=== PATIENT | female | born 1950 | race Caucasian/White ===

== ENCOUNTER → 2020-01-02 12:09 | Outpatient (BNVA) | payer MEDICARE, SELFPAY | PROVIDERS: Visit Provider Nurse Practitioner Family | DX: R73.09 Other abnormal glucose (principal); E78.2 Mixed hyperlipidemia; D64.9 Anemia, unspecified; R53.83 Other fatigue; R10.9 Unspecified abdominal pain; E55.9 Vitamin D deficiency, unspecified; R19.00 Intra-abdominal and pelvic swelling, mass and lump, unspecified site | CPT/HCPCS: 74018; 80053; 80061; 81001; 82306; 83036; 83540; 84443; 85025; 87077; 87086; 87186 ==

== ENCOUNTER 2020-01-14 12:47 | Outpatient (CLI) | payer MEDICARE, SELFPAY ==
[2020-01-14] MEDS: iohexol 300 mg/mL 100 mL Btl IV (14:15)
[2020-01-14] MEDS: iohexol 300 mg/mL 50 mL Btl PO (14:35)
--- NOTE | 2020-01-14 15:00 | CT_ITS ---
WS: [id number] CT ABDOMEN AND PELVIS WITH CONTRAST HISTORY: abdominal pain TECHNIQUE: Imaging performed of the abdomen and pelvis with IV contrast. Single phase imaging of the abdomen. Coronal and sagittal reformats are submitted. All CT scans at [facility] use at least one of these dose optimization techniques: automated exposure control; mA and/or kV adjustment per patient size (includes targeted exams where dose is matched to clinical indication); or iterativ e reconstruction. IV CONTRAST: Omnipaque 300; 95 mL IV. Oral contrast: Yes. DLP: 1027.79 mGycm COMPARISON: 11/17/2010 Lower thorax: Long-term stability of bilateral lower lobe noncalcified pulmonary nodules measuring 4 to 5 mm. Heart size is normal. No effusions. Small hiatal hernia. Liver/biliary system: Liver is mildly enlarged. There is a Delaney's lobe that extends to the iliac cr est. No bile duct dilatation or mass. Gallbladder: Normal. No gallstones or wall thickening. No pericholecystic fluid. Pancreas: Normal. Spleen: Normal. Adrenal glands: Normal. Right kidney: Normal size kidney with several small cortical cysts. Some of these hypodensities are t oo small to characterize. Cysts have increased in size and number since the prior study. No obstructi on. Left kidney: Cortical cysts. 7 mm low-attenuation nodule from the posterior mid kidney was not presen t on the prior study and too small to completely characterize but is not a simple cyst. There is an a dditional 8 mm hypodense nodule from the superior pole which is slightly increased in size. No obstru ction. Aorta: Moderate atherosclerosis of aorta. Mild ectasia. Lymphadenopathy: None. Free fluid: None. GI tract: There is extensive fecal retention throughout nearly the entire colon. Appendix is normal. No obstruction. Abdominal wall: Unremarkable abdominal wall. No hernia. Pelvis: Uterus is atrophic as expected. No free fluid or adenopathy. Urinary bladder is well distende d. Bones: No osteoblastic or osteolytic bone disease. Mild degenerative changes at the hip joints bilate rally, RIGHT greater than LEFT. CT/CT abdomen pelvis w con* [id number] IMPRESSION: 1. No acute abdominal or pelvic abnormalities. 2. Diffuse moderate constipation. 3. Extensive atherosclerosis aorta with mild ectasia. 4. Low-attenuation nodule in the LEFT kidney, interpolar. Not a simple cyst. D ue to its small size this would not be visible by ultrasound. Recommend follow- up renal mass CT protocol in 6 months. 5. Long-term stability bilateral lower lobe subcentimeter pulmonary nodules.
== END 2020-01-14 12:48 | disposition home or self-care (01) ==
LOC: RADWPI 12:52
PROVIDERS: PCP Nurse Practitioner Family; Visit Provider Nurse Practitioner Family
DX: R10.9 Unspecified abdominal pain (principal); K59.00 Constipation, unspecified; I70.0 Atherosclerosis of aorta; I77.819 Aortic ectasia, unspecified site; N28.89 Other specified disorders of kidney and ureter; R91.8 Other nonspecific abnormal finding of lung field
CPT/HCPCS: 74177; Q9967

== ENCOUNTER → 2022-07-27 15:16 | Outpatient (BNVA) | payer MEDICARE, SELFPAY | PROVIDERS: PCP Nurse Practitioner; Visit Provider Nurse Practitioner | DX: R55 Syncope and collapse (principal); R53.83 Other fatigue | CPT/HCPCS: 80053; 84443; 85025 ==

== ENCOUNTER → 2022-07-28 13:57 | Outpatient (BNVA) | payer MEDICARE, SELFPAY | PROVIDERS: PCP Nurse Practitioner; Visit Provider Nurse Practitioner | DX: R55 Syncope and collapse (principal) | CPT/HCPCS: 81000 ==

== ENCOUNTER 2022-10-04 13:50 | Outpatient (CLI) | payer MEDICARE, SELFPAY ==
--- NOTE | 2022-10-04 14:45 | US_ITS ---
WS: [id number] Complete ABDOMINAL ULTRASOUND HISTORY: R10.9 - Unspecified abdominal pain COMPARISON: Prior CT 01/14/2020 Liver: 15.6 cm in length. Normal size liver and echogenicity. No bile duct dilatation or mass. Portal Vein: Normal hepatopetal flow with monophasic waveform. Gallbladder: Normally distended gallbladder with no stones or wall thickening. CBD: 1.0 cm Pancreas: Normal size and echogenicity. Right kidney: 8.8 cm x 4.9 x 3.9 cm. Cortex:1.0 cm. Kidney is low normal size with mild cortical thinning. Simple cyst lower pole measures 1.4 x 1.5 x 1. 8 cm. No solid mass. Left kidney: 8.4 cm x 4.2 cm x 3.5 cm. Cortex: 1.0 cm. Low normal size kidney with no hydronephrosis. Spleen: Normal, 9.4 cm in length. Aorta and IVC: Mild atherosclerosis aorta. US/US abdomen complete* [id number] Impression: 1. Normal gallbladder. 2. No hydronephrosis. 3. Low normal size kidneys with no hydronephrosis. 4. Simple cyst RIGHT kidney.
== END 2022-10-04 13:51 | disposition home or self-care (01) ==
PROVIDERS: PCP Nurse Practitioner; Visit Provider Nurse Practitioner
DX: R10.9 Unspecified abdominal pain (principal); N28.1 Cyst of kidney, acquired
CPT/HCPCS: 76700

== ENCOUNTER → 2022-11-29 09:26 | Outpatient (BNVA) | payer MEDICARE, SELFPAY | PROVIDERS: PCP Nurse Practitioner; Visit Provider Nurse Practitioner | DX: M17.11 Unilateral primary osteoarthritis, right knee (principal) | CPT/HCPCS: 73562 ==

== ENCOUNTER 2022-12-17 13:58 | Outpatient (CLI) | payer MEDICARE, SELFPAY ==
--- NOTE | 2022-12-17 14:30 | XR_ITS ---
WS: [id number] SCREENING DEXA SCAN Attention Point CLINICAL INFORMATION: osteopenia COMPARISON: None. FINDINGS: The L1-L4 bone mineral density measures 1.044 g/cm2. This corresponds to a T score score of -1.1 and Z score of 0.4. Left femoral neck bone mineral density measures 0.723 g/cm2. This corresponds to a T score of -2.3 an d Z score of -0.8. Right femoral neck bone mineral density measures 0.664 g/cm2. This corresponds to a T score -2.7of an d Z score of -1.2. Mean femoral neck bone mineral density measures 0.694 g/cm2. This corresponds to a T score of -2.5 an d Z score of -1.0. XR/XR DEXA axial skeleton* [id number] IMPRESSION: Osteopenia lumbar spine. Osteoporosis femoral necks. Patient's FRAX calculated 10 year probability for major osteoporotic fracture i s 15.1 % and osteoporotic hip fracture is 5.8%.
== END 2022-12-17 13:59 | disposition home or self-care (01) ==
PROVIDERS: PCP Nurse Practitioner; Visit Provider Nurse Practitioner
DX: M85.88 Other specified disorders of bone density and structure, other site (principal); M81.0 Age-related osteoporosis without current pathological fracture
CPT/HCPCS: 77080

== ENCOUNTER 2023-03-25 22:15 | Emergency (ER) | payer MEDICARE, SELFPAY ==
[2023-03-25 22:17] VITALS: BP 150/95; PULSE 100; RESP 20; TEMP 36.7; O2SAT 94; BMI 25.0
--- NOTE | 2023-03-25 22:18 | ECG_ITS ---
[facility] Test Date: 2023-03-25 Pat Name: April Pantoja Department: Room: Gender: Female Emergency Physician: : 1950 Requested By: Bony Cheng Order Number: [id number] David MD: Greg Contreras M.D. Measurements Intervals [place] Rate: 100 P: 73 CO: 175 QRS: -38 QRSD: 81 T: 65 QT: 342 QTc: 441 Interpretive Statements SINUS TACHYCARDIA POSSIBLE LEFT ATRIAL ENLARGEMENT [-0.1mV P-WAVE IN V1/V2] LEFT AXIS DEVIATION [QRS AXIS < -30] POSSIBLE RIGHT VENTRICULAR CONDUCTION DELAY [RSR (QR) IN V1/V2] ANTEROSEPTAL MYOCARDIAL INFARCTION , OF INDETERMINATE AGE [40+ ms Q WAVE IN V1-V4] No previous ECG available for comparison Electronically Signed On 03-25-2023 23:07:38 CDT by Greg Contreras M.D. [id number] f
--- NOTE | 2023-03-25 22:31 | XRR_ITS ---
PROCEDURE INFORMATION: Exam: XR Chest Exam date and time: 03/25/2023 10:39 PM Age: 72 years old Clinical indication: Patient HX: Arythmia/palpitations; Numbness in legs and feet TECHNIQUE: Imaging protocol: Radiologic exam of the chest. Views: 1 view. COMPARISON: CT abdomen pelvis w con* [id number] 01/14/2020 2:14 PM FINDINGS: Lungs: Unremarkable. No consolidation. Pleural spaces: Unremarkable. No pleural effusion. No pneumothorax. Heart/Mediastinum: Unremarkable. No cardiomegaly. Bones/joints: Unremarkable. XR/XR chest 1V portable [id number] IMPRESSION: No acute findings.
[2023-03-25] MEDS: metoprolol tartrate 1 mg/1 mL SDV 5 mL 2.5 MG IVP (22:37)
[2023-03-25 22:38] LABS: Basophils # 0.1 10^3/uL (0.0-0.1); Basophils % 0.8 %; Eosinophils # 0.2 10^3/uL (0.0-0.8); Eosinophils % 2.9 %; Hematocrit 45.9 % (36-47); Lymphocytes # 1.6 10^3/uL (0.8-4.8); Lymphocytes % 19.5 %; Mean Corpuscular HGB Conc 32.9 g/dL (30-55); Mean Corpuscular Hemoglobin 31.8 pg (27-33); Mean Corpuscular Volume 96.6 fl (85-98); Mean Platelet Volume 11.4 fL (7.4-10.4); Monocytes # 0.9 10^3/uL (0.2-0.9); Monocytes % 11.3 %; Neutrophils # 5.37 10^3/uL (1.8-7.7); Nucleated Red Blood Cells % 0 %; Platelet Count 244 10^3/cmm (157-399); Red Blood Count 4.75 10^6/uL (3.85-5.65); Red Cell Distribution Width 13.1 % (12.1-15.1); White Blood Count 8.26 10^3/uL (3.29-11.43)
[2023-03-25 22:55] LABS: Troponin(5th) Baseline 78 ng/L (0-10)
[2023-03-25 23:01] LABS: D Dimer 0.96 ug/mLFEU (0-0.59)
[2023-03-25 23:05] LABS: Alanine Aminotransferase 6 U/L (0-33); Alkaline Phosphatase 120 U/L (35-105); Anion Gap 15.2 (5-19); Aspartate Amino Transferase 13 U/L (0-32); Blood Urea Nitrogen 12 mg/dL (8-23); Calcium 9.2 mg/dL (8.5-10.5); Carbon Dioxide 28 mmol/L (22-29); Chloride 101 mmol/L (98-107); Globulin 2.4 g/dL (1.3-4.6); Glucose 111 mg/dL (65-115); NT Pro B Type Natriuretic Pept 431 pg/mL (0-125); Osmolality Calculated 290 mOsm/kg (285-295); Potassium 4.2 mmol/L (3.5-5.1); Sodium 140 mmol/L (136-145); Thyroid Stimulating Hormone 1.74 uIU/mL (0.27-4.20); Total Bilirubin 0.2 mg/dL (0.15-1.2); Total Protein 6.4 g/dL (6.6-8.7)
--- NOTE | 2023-03-25 23:21 | CTR_ITS ---
PROCEDURE INFORMATION: Exam: CTA Chest With Contrast Exam date and time: 03/25/2023 11:55 PM Age: 72 years old Clinical indication: Abnormal findings; Abnormal diagnostic tests; Elevated d-dimer; Other: Tachycardia/hypotension; Prior surgery; Surgery date: 6+ months; Surgery type: Lumpectomy; Patient HX: Tachycardia and hypotension with dimer of 0.93. History of breast cancer. ; Additional info: Palpitations TECHNIQUE: Imaging protocol: Computed tomographic angiography of the chest with contrast. Exam focused on the arteries. 3D rendering (Not supervised by radiologist): MIP and/or 3D reconstructed images were created by the technologist. Radiation optimization: All CT scans at this facility use at least one of these dose optimization techniques: automated exposure control; mA and/or kV adjustment per patient size (includes targeted exams where dose is matched to clinical indication); or iterative reconstruction. Contrast material: OMNI 350; Contrast volume: 69 ml; Contrast route: INTRAVENOUS (IV); REPORTING DATA: Count of CT and Cardiac NM exams in prior 12 months: This patient has received 0 known CTs and 0 known cardiac nuclear medicine studies in the 12 months prior to the current study. COMPARISON: CR (CHEST, ) 03/25/2023 10:39 PM RADIATION DOSE METRICS: Total DLP (mGy-cm): 232.99 FINDINGS: Pulmonary arteries: No main, lobar, or segmental PE identified. Aorta: Advanced diffuse vascular calcification noted. No aortic aneurysm. No aortic dissection. Lungs: Mild lung base atelectasis or scarring. No consolidation. LLL 4 mm small nodule. Other unchanged minute nodularities. No dominant lung mass or spiculated nodule. Mild COPD. Pleural spaces: No pneumothorax. No pleural effusion noted. Heart: The heart is not enlarged. No pericardial effusion is noted. Lymph nodes: No bulky hilar or mediastinal lymphadenopathy noted. Kidneys and ureters: Partially assessed very small left renal cyst. Bones/joints: Skeletal structures are age appropriate. No acute fracture is seen. Soft tissues: Unremarkable. CT/CT angio chest PE protcl [id number] IMPRESSION: 1. No focal PE or pneumonia. 2. Chronic findings above. Minute left basilar nodule is stable from 01/14/2020 and should be considered benign. COMMENTS: Consistent with the [employer]'s Incidental Findings Committee white paper (J Am Belinda Radiol 2018): Any incidental renal lesion less than 1 cm or classified as too small to characterize, or any incidental cystic renal lesion characterized as simple-appearing, is likely benign. No follow-up imaging is recommended for these lesions per consensus recommendations based on imaging criteria.
[2023-03-25 23:31] VITALS: BP 101/65; PULSE 76; RESP 22
[2023-03-26] MEDS: iohexol 350 mg/mL 500 mL Btl (per mL) IV (00:05)
--- NOTE | 2023-03-26 00:11 | ED_ITS ---
HPI - Arrhythmia/Palpitations General: Chief Complaint: Arrhythmia/Palpitations Stated Complaint: SHOULDER NUMBNESS Time Seen by Provider: 03/25/23 22:17 History of Present Illness: 72-year-old female who was sitting at home in her recliner playing a video game on her phone this evening. She began to get some numbness to bilateral shoulders and bilateral legs. She felt her heart racing. She notes this is happened 1-2 times before, and if she takes a few deep breaths, it tends to resolve on its own. This time, however, it did not. Ambulance was called. EMS found her to be in SVT. Adenosine was administered, with resolution. Heart rate decreased from 190 down to 100 or so. She did not have any chest pain. She denies shortness of breath. She denies recent illness. She does note that her legs are a bit swollen, the right seems to be worse than the left she says. Associated symptoms: Deny nausea or vomiting Review of Systems Const: Denies: fever(s), chills or body aches Eyes: Denies: change in vision Card: Reports: palpitations; Denies: chest pain Resp: Denies: dyspnea, productive cough, non-productive cough or wheezing GI: Denies: abdominal pain, nausea, vomiting, diarrhea or hematochezia : Denies: difficulty voiding Skin/Breast: Denies: rash Neuro: Reports: numbness in extremities; Denies: headache(s), weakness in extremities, dizziness or confusion PFSH ED PFSH: Medical History Abdominal mass Abdominal pain Anemia Bacterial UTI BMI 23.0-23.9, adult Breast cancer screening by mammogram Chronic idiopathic constipation Colon cancer screening Diastolic blood pressure less than 80 mm Hg Environmental and seasonal allergies Fatigue Hemoglobin A1c less than 7.0% Pulmonary nodules Recent CT shows bilateral lower lobe lung nodules unchanged from previous nodules. Renal mass Repeat CT suggested for July 2020 CT January 2020 : Low-attenuation nodule in the LEFT kidney, interpolar. Not a simple cyst. Systolic blood pressure less than 130 mm Hg Vitamin D deficiency Surgical History History of biopsy Social History Smoking and tobacco/nicotine status: current every day tobacco/nicotine user Quit status (tobacco/nicotine): not considering quitting Second hand smoke exposure: No Alcohol intake: never Substance/Drug Use: never Physical Exam Const: COMMON NORMALS: no acute distress GENERAL APPEARANCE: cooperative; not ill appearing and not frail appearing HENMT: COMMON NORMALS: normocephalic, atraumatic and Normal external nose present HEAD & SCALP: normocephalic and atraumatic FACE & SINUS: normal facial exam and face symmetric NOSE: Normal external nose present Eye: COMMON NORMALS: Equal, round and reactive pupils present and EOMs intact bilaterally PUPIL: Yes Equal, round and reactive pupils present Neck/C-Spine: GENERAL: Yes trachea midline Chest: CHEST: Yes Symmetrical chest wall rise Resp: COMMON NORMALS: normal respiratory effort, No retractions, No use of accessory muscles and clear to auscultation bilaterally AUSCULTATION: clear to auscultation bilaterally Cardio: COMMON NORMALS: regular rate and regular rhythm RATE: regular rate RHYTHM: regular rhythm GI: COMMON NORMALS: Normal to inspection, nondistended, normoactive bowel sounds present Extremity: COMMON NORMALS: no pedal edema Neuro: FRANCA COMA SCALE: document GCS findings Franca coma scale eye opening: Spontaneous Franca coma scale verbal response: Orientated Franca coma scale motor response: Obey commands [place] coma scale total score: 15 SENSORY EXAM: Yes extremities (intact) Psych: COMMON NORMALS: speech normal SPEECH: Yes normal speech Skin: COMMON NORMALS: no rashes or lesions noted GENERAL SKIN EXAM: no rashes or lesions noted Course Vital Signs: Vital signs: Vital Signs Temperature 98.1 F 03/25/23 22:17 Pulse Rate 78 03/26/23 01:27 Respiratory Rate 29 H 03/26/23 01:27 Blood Pressure 131/79 03/26/23 01:27 Pulse Oximetry 97 03/26/23 01:27 Oxygen Delivery Me thod Room Air 03/25/23 23:31 MDM - Arrhythmia/Palpitations Medical Decision Making Heart rate of [address] wave changes on EKG. Heart rate decreased to 74 after administration of 2.5 mg of metoprolol IV. Her vitals are normal. She has no complaints. CBC is normal. Creatinine is 1.2. Troponin is elevated at 78. 2 hours pending. There is also an elevation in D-dimer, so CTA was ordered. Results are pending. Second troponin is 160. Significant delta, however this patient did have a sustained heart rate of 190 for quite some time. I would expect rate demand ischemia to cause a continued elevation in troponin. She never had any chest pain, and her pain is resolved at this point. EKG does not show any ST wave changes once tachycardia resolved. Patient was given the option for admission, due to elevated troponin, but shows discharge. She will be placed on metoprolol for rate control. Referral to cardiology. Case management will be involved. Lab Data 03/25/23 22:03/25/23 Radiology Impressions Chest X-Ray 03/25/23 IMPRESSION: No acute findings. Chest CTA 03/25/23: IMPRESSION: 1. No focal PE or pneumonia. 2. Chronic findings above. Minute left basilar nodule is stable from 01/14/2020 and should be considered benign. COMMENTS: Consistent with the [employer]'s Incidental Findings Committee white paper (J Am Belinda Radiol 2018): Any incidental renal lesion less than 1 cm or classified as too small to characterize, or any incidental cystic renal lesion characterized as simple-appearing, is likely benign. No follow-up imaging is recommended for these lesions per consensus recommendations based on imaging criteria. Laboratory Results WBC 8.26 10^3/uL (3.29-11.43) 03/25/23: RBC 4.75 10^6/uL (3.85-5.65) 03/25/23: Hgb 15.10 g/dL (11.27-16.99) 03/25/23: Hct 45.9 % (36-47) 03/25/23: MCV 96.6 fl (85-98) 03/25/23: MCH 31.8 pg (27-33) 03/25/23: MCHC 32.9 g/dL (30-55) 03/25/23: RDW 13.1 % (12.1-15.1) 03/25/23: Plt Count 244 10^3/cmm (157-399) 03/25/23: MPV 11.4 fL (7.4-10.4) H 03/25/23: Neut % (Auto) 65.0 % 03/25/23: Lymph % (Auto) 19.5 % 03/25/23: [place] % (Auto) 11.3 % 03/25/23: Eos % (Auto) 2.9 % 03/25/23: Baso % (Auto) 0.8 % 03/25/23: Neut # (Auto) 5.37 10^3/uL (1.8-7.7) 03/25/23: Lymph # (Auto) 1.6 10^3/uL (0.8-4.8) 03/25/23: [place] # (Auto) 0.9 10^3/uL (0.2-0.9) 03/25/23: Eos # (Auto) 0.2 10^3/uL (0.0-0.8) 03/25/23: Baso # (Auto) 0.1 10^3/uL (0.0-0.1) 03/25/23: Nucleated RBC % (auto) 0 % 03/25/23 Nucleated RBCs # 0.0 /100WBC 03/25/23: D-Dimer 0.96 ug/mLFEU (0-0.59) H 03/25/23: Sodium 140 mmol/L (136-145) 03/25/23: Potassium 4.2 mmol/L (3.5-5.1) 03/25/23: Chloride 101 mmol/L (98-107) 03/25/23: Carbon Dioxide 28 mmol/L (22-29) 03/25/23: Anion Gap 15.2 (5-19) 03/25/23: BUN 12 mg/dL (8-23) 03/25/23: Creatinine 1.2 mg/dL (0.5-0.9) H 03/25/23: GFR Calculation Not Reportable 03/25/23: Glucose 111 mg/dL (65-115) 03/25/23: Calculated Osmolality 290 mOsm/kg (285-295) 03/25/23: Calcium 9.2 mg/dL (8.5-10.5) 03/25/23 22:27 Total Bilirubin 0.2 mg/dL (0.15-1.2) 03/25/23 22:27 AST 13 U/L (0-32) 03/25/23 22:27 ALT 6 U/L (0-33) 03/25/23 22:27 Alkaline Phosphatase 120 U/L (35-105) H 03/25/23 22:27 Troponin T Baseline 78 ng/L (0-10) H 03/25/23 22:27 Troponin T 120 Minute 159.8 ng/L (0-10) H 03/26/23 00:21 Delta Troponin T 81.8 ABS# (0-10) H* 03/26/23 00:21 NT-Pro-B Natriuret Pep 431 pg/mL (0-125) H 03/25/23 22:27 Total Protein 6.4 g/dL (6.6-8.7) L 03/25/23 22:27 Albumin 4.0 g/dL (3.5-5.2) 03/25/23 22:27 Globulin 2.4 g/dL (1.3-4.6) 03/25/23 22: TSH 1.74 uIU/mL (0.27-4.20) 03/25/23 22:27 All radiology interpretation(s) finalized by discharge Discharge Plan Discharge Patient Disposition: Home Clinical Impression: Supraventricular tachycardia Condition: Stable Prescriptions: New metoprolol tartrate 25 mg tablet 12.5 mg PO BID Qty: 60 0RF No Action celecoxib [Celebrex] 200 mg capsule 200 mg PO DAILY Qty: 30 2RF omeprazole 40 mg capsule,delayed release(DR/EC) 40 mg PO DAILY Qty: 14 0RF Discharge Orders: Discharge ED (Routine); Ordered 03/26/23 Ordered By: Bony Cano Referrals: Virginia Snowden FNP [Primary Care Provider] - 1-3 days Yrn Merrill MD [Physician] - 7-10 days Patient Instructions: Tachycardia (ED) Activity Restrictions/Additional Instructions: Medication as directed. Return for any return of numbness, heart racing sensation, or development of chest discomfort or shortness of breath. Follow-up with your doctor. Case management should contact you next week regarding a follow-up appointment with cardiology. Coding Level of Care Code ED Presetter Operator for [place] Amanda
--- NOTE | 2023-03-26 00:31 | ECG_ITS ---
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 Measurements Intervals [place] Rate: 74 P: 21 MN: 165 QRS: -43 QRSD: 82 T: 3 QT: 399 QTc: 445 Interpretive Statements SINUS RHYTHM LEFT AXIS DEVIATION [QRS AXIS < -30] POSSIBLE RIGHT VENTRICULAR CONDUCTION DELAY [RSR (QR) IN V1/V2] ANTEROSEPTAL MYOCARDIAL INFARCTION , OF INDETERMINATE AGE [40+ ms Q WAVE IN V1-V4] Compared to ECG 03/25/2023 22:18:00 Sinus tachycardia no longer present Myocardial infarct finding still present Electronically Signed On 03-28-2023 12:45:35 CDT by Ese Olivas M.D. [id number]
[2023-03-26 00:50] LABS: Troponin 5 2HR 159.8 ng/L (0-10)
[2023-03-26 00:51] LABS: Troponin 5 2HR Delta 81.8 ABS# (0-10)
[2023-03-26 01:27] VITALS: BP 131/79; PULSE 78; RESP 29; O2SAT 97
[2023-03-26] MEDS: metoprolol tartrate 25 mg Tablet 12.5 MG PO (01:34)
--- NOTE | 2023-03-28 12:37 | DCPLANNER ---
Referral was sent to cardiology on 03/28/23 at 12:37. Cardiology clinic to contact patient.
== END 2023-03-26 01:37 | disposition home or self-care (01) ==
PROVIDERS: Emergency Provider Emergency Medicine; PCP Nurse Practitioner
DX: I47.10 Supraventricular tachycardia, unspecified (principal); F17.210 Nicotine dependence, cigarettes, uncomplicated
CPT/HCPCS: 36415; 71045; 71275; 80053; 83880; 84443; 84484; 85025; 85378; 93005; 96374; 99285; J3490; Q9967

== ENCOUNTER → 2023-03-29 09:34 | Outpatient (BNVA) | payer MEDICARE, SELFPAY | PROVIDERS: PCP Nurse Practitioner; Visit Provider Nurse Practitioner Family | DX: E55.9 Vitamin D deficiency, unspecified (principal); R53.83 Other fatigue; Z79.899 Other long term (current) drug therapy; R31.9 Hematuria, unspecified; R73.09 Other abnormal glucose; Z87.898 Personal history of other specified conditions; I47.10 Supraventricular tachycardia, unspecified | CPT/HCPCS: 80053; 80061; 81003; 82043; 82306; 83036; 83880; 84443; 85007; 85027 ==

== ENCOUNTER → 2023-04-19 14:13 | Outpatient (BNVA) | payer MEDICARE, SELFPAY | PROVIDERS: PCP Nurse Practitioner; Referring Provider Emergency Medicine; Visit Provider Internal Medicine Cardiovascular Disease | DX: I47.10 Supraventricular tachycardia, unspecified (principal); R94.31 Abnormal electrocardiogram [ECG] [EKG]; R03.0 Elevated blood-pressure reading, without diagnosis of hypertension; R01.1 Cardiac murmur, unspecified; F17.200 Nicotine dependence, unspecified, uncomplicated; R00.2 Palpitations | CPT/HCPCS: 99204 ==

== ENCOUNTER 2023-05-02 08:45 | Outpatient (CLI) | payer MEDICARE, SELFPAY ==
--- NOTE | 2023-05-02 09:30 | USCV_ITS ---
April Pantoja Age: 72 Gender: F : 1950 Exam Date: 05/02/2023 09:32 Ordering Phys: Yrn Merrill MD ([email or web address]) Technologist: Neda Sue [place] [facility] [place]: murmur BP: 132 / 78 HR: 98 Rhythm: Sinus Technical Quality: Good MEASUREMENTS (Male / Female) Normal Values 2D ECHO LV Diastolic Diameter PLAX 3.8 cm 4.2 - 5.9 / 3.9 - 5.3 cm LV Systolic Diameter PLAX 2.0 cm IVS Diastolic Thickness 1.2 cm 0.6 - 1.0 / 0.6 - 0.9 cm IVS Systolic Thickness 1.7 cm LVPW Diastolic Thickness 1.4 cm 0.6 - 1.0 / 0.6 - 0.9 cm LVPW Systolic Thickness 1.4 cm LVOT Diameter 2.1 cm LV Ejection Fraction 2D Teich 78.8 % LV Ejection Fraction MOD 2C 62.4 % LV Ejection Fraction 2C AL 62.7 % LA Diameter 2.8 cm LA Width 3.6 cm LA Height 3.7 cm RA Width 2.4 cm RA Height 3.8 cm Aorta at Sinotubular Diameter 2.9 cm IVC Diameter 1.6 cm M-MODE Aortic Annulus Diameter 3.0 cm LA Ao Ratio MM 1.1 MV E Point Septal Separation 0.1 cm DOPPLER AV Peak Velocity 163.3 cm/s LVOT Peak Velocity 139.0 cm/s AV Area Cont Eq vti 3.3 cm squared AV Area Cont Eq pk 3.1 cm squared MV Peak Velocity 117.0 cm/s MV Area PHT 3.5 cm squared Mitral E to A Ratio 1.4 MV E' Velocity 57.0 cm/s Mitral E to MV E' Ratio 12.3 Mitral E to LV E' Lateral Ratio 13.8 Mitral E to LV E' Septal Ratio 11.3 TR Peak Velocity 228.3 cm/s TR Peak Gradient 20.9 mmHg Right Atrial Pressure 5.0 mmHg Pulmonary Artery Systolic Pressu 25.9 mmHg PV Peak Velocity 93.0 cm/s RV Acceleration Time 0.1 s RV Ejection Time 0.4 s RV AcT/ET 0.4 FINDINGS Left Ventricle Normal left ventricular size, systolic function and wall thickness, with no regional wall motion abnormalities. Left ventricular ejection fraction is estimated at 65 %. Right Ventricle Normal right ventricular size and systolic function. Right Atrium Normal right atrial size. Left Atrium Normal left atrial size. Mitral Valve Thickened mitral valve. Mitral annular calcification. No mitral valve stenosis. Trace mitral valve regurgitation. Aortic Valve Thickened aortic valve.no aortic valve stenosis. No aortic valve regurgitation. Tricuspid Valve Structurally normal tricuspid valve. Trace tricuspid valve regurgitation. Pulmonic Valve Structurally normal pulmonic valve. Mild pulmonary valve regurgitation. Pericardium no thickening/calcification of the pericardium. pericardial effusion. Aorta Normal size aortic root and proximal ascending aorta. IVC Normal IVC dimension with >50% respiratory change of the inferior vena cava. CONCLUSIONS Normal left ventricle systolic function. No LVH. Estimated LVEF 65%. Normal chamber sizes. No significant valvular abnormality noted Normal right heart and pulmonary pressures. Camille Degroot MD (Electronically Signed) Final Date: 02 May 2023 19:59 S
== END 2023-05-02 08:46 | disposition home or self-care (01) ==
LOC: RAD 08:45
PROVIDERS: PCP Nurse Practitioner; Visit Provider Internal Medicine Cardiovascular Disease
DX: R06.09 Other forms of dyspnea (principal); R01.1 Cardiac murmur, unspecified
CPT/HCPCS: 93306

== ENCOUNTER → 2023-07-07 10:22 | Outpatient (BNVA) | payer MEDICARE, SELFPAY | PROVIDERS: PCP Nurse Practitioner Family; Visit Provider Nurse Practitioner Family | DX: I47.10 Supraventricular tachycardia, unspecified (principal) | CPT/HCPCS: 99213 ==

== ENCOUNTER → 2024-01-18 09:06 | Outpatient (BNVA) | payer MEDICARE, SELFPAY | PROVIDERS: PCP Nurse Practitioner Family; Visit Provider Nurse Practitioner Family | DX: I47.10 Supraventricular tachycardia, unspecified (principal); I10 Essential (primary) hypertension; Z72.0 Tobacco use | CPT/HCPCS: 36415; 80048; 99214 ==

== ENCOUNTER → 2024-05-21 09:25 | Outpatient (BNVA) | payer MEDICARE, SELFPAY | PROVIDERS: PCP Nurse Practitioner Family; Visit Provider Nurse Practitioner Family | DX: Z79.899 Other long term (current) drug therapy (principal); I10 Essential (primary) hypertension; E55.9 Vitamin D deficiency, unspecified; R19.5 Other fecal abnormalities; R53.83 Other fatigue; R73.09 Other abnormal glucose; I47.10 Supraventricular tachycardia, unspecified; Z12.31 Encounter for screening mammogram for malignant neoplasm of breast; Z85.3 Personal history of malignant neoplasm of breast; Z98.890 Other specified postprocedural states; R01.1 Cardiac murmur, unspecified | CPT/HCPCS: 80053; 80061; 82306; 83036; 84443; 85025 ==

== ENCOUNTER 2024-06-04 11:21 | Outpatient (CLI) | payer MEDICARE, SELFPAY ==
--- NOTE | 2024-06-04 11:40 | MM_ITS ---
WS: [id number] Bilateral diagnostic 3D tomosynthesis digital mammogram, 06/04/2024 Clinical Data: HX OF BREAST CA Comparison: 11/26/2008 Findings: The breast tissue in the right breast shows heterogeneous density with numerous scattered benign calc ifications. No spiculated masses nor clustered calcifications are seen. The left breast shows fibrogl andular tissue with a smaller number of benign calcifications. MM/MM diag BI tomosynthesis [id number] Impression: 1. Negative bilateral mammograms unchanged. 2. Recommend annual mammograms. BIRADS: 1 - Negative FOLLOW UP: 1 Year Follow-up The CAD specifications checker was used
== END 2024-06-04 11:22 | disposition home or self-care (01) ==
LOC: RAD 11:22
PROVIDERS: PCP Nurse Practitioner Family; Visit Provider Nurse Practitioner Family
DX: Z12.11 Encounter for screening for malignant neoplasm of colon (principal); R03.0 Elevated blood-pressure reading, without diagnosis of hypertension
CPT/HCPCS: 77062; 77063; 77067; 99204; G0279

== ENCOUNTER 2024-07-02 08:37 | Day surgery (SDC) | payer MEDICARE, SELFPAY ==
[2024-07-02 08:58] VITALS: BP 126/75; PULSE 112; RESP 18; TEMP 36.1; O2SAT 97; BMI 25.0
[2024-07-02] MEDS: sodium chloride 0.9% 500 ML 15 ML IV (09:07)
--- NOTE | 2024-07-02 10:02 | ANES.PREANE2 ---
Pre-Anesthetic Assessment Height/Weight: Height 1.7 m Weight 72.575 kg Temp Pulse Resp BP Pulse Ox O2 Del Method 97.0 F L 112 H 18 126/75 97 Room Air 07/02/24 08:58 07/02/24 08:58 07/02/24 08:58 07/02/24 08:58 07/02/24 08:58 07/02/24 08:58 Operation Date: 07/02/24 10:00 Proposed Procedures p Colonoscopy 94232, G0121, Z12.11(Not Applicable) - Albin Renee MD Familial anesthetic complications: None Was Beta Chad taken within 24 hours: N/A Was Clonidine taken within 24 hours: N/A Last intake: Intake Last Liquid Date 07/01/24 Last Liquid Time 00:00 Last Solid Date 07/01/24 Last Solid Time 09:30 Social Tobacco and No alcohol Exam alert, oriented x 3, clear to auscultation bilaterally and regular rate & rhythm Airway Mallampati: Class I Dentition: false and other CV/HEM Hypertension Anesthetic Plan ASA status: 2 Anesthesia: MAC Risk of > 500 ml blood loss (7ml/kg in children): No Medications/Allergies Home Medications Medication Instructions Recorded Confirmed Last Taken Type celecoxib 200 mg capsule (Celebrex) 200 mg PO DAILY #90 caps 07/01/23 07/02/24 07/01/24 Rx amlodipine 2.5 mg tablet 2.5 mg PO DAILY 06/28/24 07/02/24 07/01/24 History metoprolol tartrate 25 mg tablet 25 mg PO BID 06/28/24 07/02/24 07/01/24 History Allergies Allergy/AdvReac Type Severity Reaction Status Date / Time No Known Allergies Allergy Verified 07/02/24 08:57 Current Medications Generic Name Dose Route Start Last Admin Trade Name Freq PRN Reason Stop Dose Admin Sodium Chloride 500 mls @ 15 mls/hr 07/02/24 08:46 07/02/24 09:07 Sodium Chloride 0.9% IV 07/03/24 08:45 15 mls/hr .Q24H PRN Administration COLONOSCOPY FLUIDS PFSH Anesthesia Medical History (Updated 06/19/24 @ 08:36 by Di Gan LPN) Enrolled in chronic care management HX: breast cancer Positive colorectal cancer screening using Cologuard test Hypertension Low back pain Elevated serum creatinine History of abnormal breathing pattern Medication management Hematuria Supraventricular tachycardia Breast cancer screening by mammogram Colon cancer screening Diastolic blood pressure less than 80 mm Hg Systolic blood pressure less than 130 mm Hg BMI 23.0-23.9, adult Hemoglobin A1c less than 7.0% Environmental and seasonal allergies Pulmonary nodules Recent CT shows bilateral lower lobe lung nodules unchanged from previous nodules. Renal mass Repeat CT suggested for July 2020 CT January 2020 : Low-attenuation nodule in the LEFT kidney, interpolar. Not a simple cyst. Chronic idiopathic constipation Bacterial UTI Abdominal mass Anemia Vitamin D deficiency Abdominal pain Fatigue Surgical History (Updated 06/04/24 @ 13:03 by TOR Culp) S/P lumpectomy of breast History of biopsy Social History Smoking and tobacco/nicotine status: current every day tobacco/nicotine user Quit status (tobacco/nicotine): not considering quitting Second hand smoke exposure: No Alcohol intake: never Substance/Drug Use: never Data Anesthesia Cardiac Studies: Echocardiogram 05/02/23 Cardiac Event Monitor 05/04/23
--- NOTE | 2024-07-02 10:09 | W.PM.OPSUD ---
Surgery/Procedure H&P Update DATE OF PROCEDURE: July 02, 2024 DATE H&P PERFORMED: 06/04/24 H&P UPDATE INFORMATION: I have reviewed H&P completed within last 30 days, I have examined patient prior to procedure and No changes to prior documentation PLANNED PROCEDURE: Operation Date: 07/02/24 10:00 Proposed Procedures p Colonoscopy 13956, G0121, Z12.11(Not Applicable) - Albin Renee MD
[2024-07-02 10:39] VITALS: BP 90/53; PULSE 73; RESP 16; TEMP 36.3; O2SAT 100
[2024-07-02 10:52] VITALS: BP 106/63; PULSE 68; RESP 16; O2SAT 98
[2024-07-02 11:01] VITALS: BP 118/84; PULSE 69; RESP 16; O2SAT 99
--- NOTE | 2024-07-02 15:36 | ANE.PACU2 ---
Inpatient post-anesthesia follow up: Airway intact: Yes Vital signs: Temperature 97.3 F Pulse Rate 69 Respiratory Rate 16 Blood Pressure 118/84 Pulse Oximetry 99 Oxygen Delivery Me thod Room Air Oxygen Flow Rate Fraction of Inspir ed Oxygen Hydration adequate: Yes Nausea and vomiting: No Pain level: 1 Mental status: Baseline
== END 2024-07-02 11:10 | disposition home or self-care (01) ==
PROVIDERS: PCP Nurse Practitioner Family; Visit Provider Student in an Organized Health Care Education/Training Program
PROC: 0DJD8ZZ Inspection of Lower Intestinal Tract, Via Natural or Artificial Opening Endoscopic (ICD-10-PCS; CPT 45378; principal; 2024-07-02 10:00)
DX: Z12.11 Encounter for screening for malignant neoplasm of colon (principal); K63.5 Polyp of colon; I10 Essential (primary) hypertension; F17.200 Nicotine dependence, unspecified, uncomplicated; Z79.899 Other long term (current) drug therapy; Z85.3 Personal history of malignant neoplasm of breast
CPT/HCPCS: 45385; 88305; J2704; J7040

== ENCOUNTER → 2024-07-30 09:31 | Outpatient (BNVA) | payer MEDICARE, SELFPAY | PROVIDERS: PCP Nurse Practitioner Family; Visit Provider Student in an Organized Health Care Education/Training Program | DX: Z09 Encounter for follow-up examination after completed treatment for conditions other than malignant neoplasm (principal) | CPT/HCPCS: 99213 ==

== ENCOUNTER → 2024-11-29 10:32 | Outpatient (BNVA) | payer MEDICARE, SELFPAY | PROVIDERS: PCP Nurse Practitioner Family; Visit Provider Nurse Practitioner Family | DX: R10.84 Generalized abdominal pain (principal); R19.05 Periumbilic swelling, mass or lump; N28.89 Other specified disorders of kidney and ureter; Z79.899 Other long term (current) drug therapy; I10 Essential (primary) hypertension; D64.9 Anemia, unspecified; R53.83 Other fatigue | CPT/HCPCS: 80053; 81003; 82150; 82306; 82728; 83550; 83690; 84443; 85025; 85651; 86140; 87086 ==

== ENCOUNTER 2024-12-05 08:18 | Outpatient (CLI) | payer MEDICARE, SELFPAY ==
--- NOTE | 2024-12-05 08:30 | CT_ITS ---
WS: [id number] CT ABDOMEN AND PELVIS WITH AND WITHOUT CONTRAST HISTORY: R10.84 - Generalized abdominal pain TECHNIQUE: Unenhanced axial imaging first performed through the abdomen. Post contrast imaging through the abdomen and pelvis. Oral contrast has not been provided. Sagittal and coronal reformats are submitted. All CT scans at [facility] use at least one of these dose optimization techniques: automated exposure control; mA and/or kV adjustment per patient size (includes targeted exams where dose is matched to clinical indication); or iterative reconstruction. CONTRAST: Omnipaque 350; 95 mL IV. DLP: 1571.74 mGy.cm COMPARISON: 01/14/2020 Lung bases are clear. Heart size is normal. Small hiatal hernia. There is slight tricuspid regurgitation into the hepatic veins. RIGHT kidney: 9.2 cm in length. No hydronephrosis. No renal calcification. There are several nonenhancing small cortical cysts. The largest cyst measures 2.1 cm in the mid kidney. No obstruction. LEFT kidney: Normal size kidney 9.3 cm in length. No obstruction or hydronephrosis. There are multiple small cortical hypodensities. Hyperdense nodule in the posterior mid kidney is reidentified. This corresponds to the nodule described in 2020. This nodule is now hyperdense but there is no enhancement. There are no enhancing renal lesions. Mild diffuse gastric wall thickening may be due to only partial distention. Submucosal enhancement involving the second portion of the duodenum with mild narrowing of the lumen. There is asymmetric wall thickening suspicious for an ulcer. Gallbladder is still present. Common bile duct is top normal size for age. Liver and spleen are otherwise negative. No pancreatic mass. Aorta: Extensive atherosclerotic plaque with aneurysmal dilatation abdominal aorta. Aneurysmal dilatation begins below the level of the renal veins with a maximum diameter of 3.2 cm. There is circumferential plaque and wall calcifications. Calcifications continue into the iliac arteries with at least m ild stenosis. Mesenteric arteries are well enhanced. No GI tract obstruction. Normal appendix. Mild diffuse constipation. No colitis. No free fluid or free air. Atrophic uterus as expected. Bladder is not distended. T12 50% compression fracture. Fracture is new since 2019. 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 Bone upon bone with subchondral cystic changes on both sides of the joint. CT/CT abdomen pelvis wo/w [id number] IMPRESSION: 1. Bilateral multiple renal cysts and complex cyst. No enhancing mass identifi ed. 2. Mild diffuse gastric wall thickening with submucosal enhancement and thicke stanislaw involving the duodenum. Consider gastric ulcer and duodenitis. If symptoms do not improve prove upper endoscopy may be necessary to better evaluate the d uodenum and stomach antrum for an underlying neoplasm. 3. Abdominal aortic aneurysm with a maximum diameter of 3.2 cm. Aneurysm is ne w since the prior exam from 2019. 4. Normal appendix. 5. 50% compression fracture at T12, new since 2019.
[2024-12-05] MEDS: iohexol 350 mg/mL 500 mL Btl (per mL) IV (08:56)
== END 2024-12-05 08:19 | disposition home or self-care (01) ==
PROVIDERS: PCP Nurse Practitioner Family; Visit Provider Nurse Practitioner Family
DX: I71.40 Abdominal aortic aneurysm, without rupture, unspecified (principal); R19.05 Periumbilic swelling, mass or lump; N28.89 Other specified disorders of kidney and ureter; M48.54XA Collapsed vertebra, not elsewhere classified, thoracic region, initial encounter for fracture
CPT/HCPCS: 74178

== ENCOUNTER → 2024-12-12 08:10 | Outpatient (BNVA) | payer MEDICARE, SELFPAY | PROVIDERS: PCP Nurse Practitioner Family; Visit Provider Nurse Practitioner Family | DX: M16.0 Bilateral primary osteoarthritis of hip (principal); M85.651 Other cyst of bone, right thigh; M85.652 Other cyst of bone, left thigh | CPT/HCPCS: 73523 ==

== ENCOUNTER → 2025-01-14 14:21 | Outpatient (BNVA) | payer MEDICARE, SELFPAY | PROVIDERS: PCP Nurse Practitioner Family; Visit Provider Internal Medicine Cardiovascular Disease | DX: I47.10 Supraventricular tachycardia, unspecified (principal); R94.31 Abnormal electrocardiogram [ECG] [EKG]; I10 Essential (primary) hypertension; F17.200 Nicotine dependence, unspecified, uncomplicated | CPT/HCPCS: 99214 ==